=== PATIENT | female | born 1990 | race American Indian/Alaskan Native ===

== ENCOUNTER 2017-10-31 23:20 | Outpatient (CLI) | payer OTHER ==
[2017-10-31 23:42] VITALS: BP 108/57
== END 2017-11-01 00:20 | disposition home or self-care (01) ==
LOC: TRG 23:20
PROVIDERS: ATTEND Obstetrics & Gynecology
DX: O47.1 False labor at or after 37 completed weeks of gestation (principal); Z3A.38 38 weeks gestation of pregnancy
CPT/HCPCS: 59025

== ENCOUNTER 2017-11-04 00:50 | Outpatient (CLI) | payer OTHER ==
[2017-11-04 01:02] VITALS: BP 103/60
== END 2017-11-04 01:56 | disposition home or self-care (01) ==
LOC: TRG 00:50
PROVIDERS: ATTEND Obstetrics & Gynecology
DX: O26.893 Other specified pregnancy related conditions, third trimester (principal); R10.9 Unspecified abdominal pain; Z3A.39 39 weeks gestation of pregnancy

== ENCOUNTER 2019-01-29 10:50 | Emergency (ER) | payer OTHER ==
[2019-01-29 11:14] VITALS: BP 109/70
[2019-01-29 13:00] LABS: Hematocrit 37.1 % (30.3-42.9); Hemoglobin 12.4 gm/dl (10.1-14.3); Mean Corpuscular HGB Conc 34 % (30-34); Mean Corpuscular Volume 91 fl (79-97); Platelet Count 176 K/mm3 (140-440); Red Blood Count 4.07 M/mm3 (3.65-5.03); Red Cell Distribution Width 13.9 % (13.2-15.2)
[2019-01-29 13:42] LABS: BUN/Creatinine Ratio 15; Blood Urea Nitrogen 9 mg/dL (7-17); Calcium 9.5 mg/dL (8.4-10.2); Hemolysis Index 10
--- NOTE | 2019-01-29 13:42 | Emergency Department Report ---
ED Abdominal Pain HPI - General Chief Complaint: Abdominal Pain Stated Complaint: 7WKS/ABD PAIN Time Seen by Provider: 01/29/19 13:11 Source: patient Mode of arrival: Ambulatory Limitations: No Limitations - History of Present Illness Initial Comments: 28YO COMES TO ER WITH ABD PAIN. SHE IS 13 W . DENIES VAG BLEED. . SHE IS AMBULATORY AND NON TOXIC NO FEVER HAS OBGYN APPNT IN JANUARY - Related Data Allergies Allergy/AdvReac Type Severity Reaction Status Date / Time No Known Allergies Allergy Verified 10/31/17 23:58 ED Review of Systems ROS: Stated complaint: 7WKS/ABD PAIN Other details as noted in HPI Comment: All other systems reviewed and negative ED Past Medical Hx - Past Medical History Hx Hypertension: No Hx Diabetes: No Hx Deep Vein Thrombosis: No Hx Renal Disease: No Hx Sickle Cell Disease: No Hx Seizures: No Hx Asthma: No Hx HIV: No - Surgical History Past Surgical History?: No - Family History Family history: no significant - Social History Smoking Status: Never Smoker Substance Use Type: None ED Physical Exam - General Limitations: No Limitations General appearance: alert, in no apparent distress - Head Head exam: Present: atraumatic, normocephalic - Eye Eye exam: Present: normal appearance, PERRL - ENT ENT exam: Present: mucous membranes moist - Neck Neck exam: Present: normal inspection ED Course Vital Signs 01/29/19 11:13 Temperature 98.6 F Pulse Rate 100 H Respiratory 18 Rate Blood Pressure 109/70 [Left] O2 Sat by Pulse 98 Oximetry ED Medical Decision Making - Lab Data Result diagrams: 01/29/19 12:48 01/29/19 12:48 - Medical Decision Making LEFT BEFORE LABS COMPLETED BETA HCG NOT RETURNED Vital Signs 01/29/19 11:13 Temperature 98.6 F Pulse Rate 100 H Respiratory 18 Rate Blood Pressure 109/70 [Left] O2 Sat by Pulse 98 Oximetry Labs 01/29/19 01/29/19 01/29/19 12:48 12:48 12:48 WBC 9.0 RBC 4.07 Hgb 12.4 Hct 37.1 MCV 91 MCH 31 MCHC 34 RDW 13.9 Plt Count 176 Sodium 136 L Potassium 4.0 Chloride 101.7 Carbon Dioxide 23 Anion Gap 15 BUN 9 Creatinine 0.6 L Estimated GFR > 60 BUN/Creatinine Ratio 15 Glucose 99 Calcium 9.5 Urine Bilirubin Urine RBC (Auto) U Epithel Cells (Auto) Blood Type O POSITIVE 01/29/19 13:25 WBC RBC Hgb Hct MCV MCH MCHC RDW Plt Count Sodium Potassium Chloride Carbon Dioxide Anion Gap BUN Creatinine Estimated GFR BUN/Creatinine Ratio Glucose Calcium Urine Bilirubin Neg Urine RBC (Auto) 1.0 U Epithel Cells (Auto) 2.0 Blood Type Critical care attestation.: If time is entered above; I have spent that time in minutes in the direct care of this critically ill patient, excluding procedure time. ED Disposition Clinical Impression: Disposition: Z-07 ELOPED Is pt being admited?: No Does the pt Need Aspirin: No Condition: Stable Time of Disposition: 13:49
[2019-01-29 13:43] LABS: Bacteria,Urine 1+ /HPF (Negative); Bilirubin,Urine NEG (Negative); Blood,Urine NEG (Negative); Color,Urine Yellow (Yellow); Mucus,Urine 3+ /HPF; Protein,Urine <15 mg/dL mg/dL (Negative)
== END 2019-01-29 13:52 | disposition left against medical advice (07) ==
LOC: ED 10:50
DX: O26.891 Other specified pregnancy related conditions, first trimester (principal); R10.9 Unspecified abdominal pain; Z3A.13 13 weeks gestation of pregnancy
CPT/HCPCS: 36415; 80048; 81001; 84702; 85027; 86900; 86901; 99283

== ENCOUNTER 2019-03-07 10:31 | Emergency (ER) | payer MEDICAID, OTHER ==
[2019-03-07] MEDS ORDERED: TYLENOL ONE (11:13)
[2019-03-07] MEDS ORDERED: NACL 0.9% 1000 ML 1,000 ML ONE (11:13)
[2019-03-07] MEDS ORDERED: NACL 0.9% 1000 ML 1,000 ML IV ONE (11:16)
[2019-03-07] MEDS ORDERED: TYLENOL PO ONE (11:16)
--- NOTE | 2019-03-07 11:22 | Emergency Department Report ---
ED Female HPI - General Chief complaint: Vaginal Bleeding Stated complaint: VAGINAL BLEEDING Time Seen by Provider: 03/07/19 11:15 Source: patient Mode of arrival: Stretcher Limitations: No Limitations - History of Present Illness Initial comments: Patient is 28 years old female with no significant past medical history. Patient is 2 para 1. Patient is 15 weeks presented to the ER complaining of sudden onset of vaginal bleeding started this morning while she was washing dishes at home. Patient stated that she is having lower abdominal cramping. Patient follow by [facility]. Patient denied any chest pain, shortness of breath, nausea or vomiting. MD Complaint: vaginal bleeding, pelvic pain -: Sudden, This morning Radiation: suprapubic Consistency: constant Are you Now?: Yes - Related Data : 2 Para: 1 A: 0 Previous Rx's Medication Instructions Recorded Last Taken Type cephALEXin [Keflex] 500 mg PO BID 7 Days #14 cap 02/15/19 Unknown Rx Allergies Allergy/AdvReac Type Severity Reaction Status Date / Time No Known Allergies Allergy Verified 10/31/17 23:58 ED Review of Systems ROS: Stated complaint: VAGINAL BLEEDING Other details as noted in HPI Comment: All other systems reviewed and negative Constitutional: denies: chills, fever Respiratory: denies: cough, orthopnea, shortness of breath, SOB with exertion, SOB at rest, wheezing Cardiovascular: denies: chest pain, palpitations, dyspnea on exertion Gastrointestinal: abdominal pain. denies: nausea, vomiting, diarrhea, constipation, hematemesis, melena, hematochezia Musculoskeletal: denies: back pain Neurological: denies: headache, weakness, numbness, paresthesias, confusion ED Past Medical Hx - Past Medical History Previous Medical History?: No Hx Hypertension: No Hx Diabetes: No Hx Deep Vein Thrombosis: No Hx Renal Disease: No Hx Sickle Cell Disease: No Hx Seizures: No Hx Asthma: No Hx HIV: No - Surgical History Past Surgical History?: No - Social History Smoking Status: Never Smoker Substance Use Type: None - Medications Home Medications: Home Medications Medication Instructions Recorded Confirmed Last Taken Type cephALEXin [Keflex] 500 mg PO BID 7 Days #14 cap 02/15/19 Unknown Rx ED Physical Exam - General Limitations: No Limitations General appearance: alert, in no apparent distress - Head Head exam: Present: atraumatic, normocephalic, normal inspection - Eye Eye exam: Present: normal appearance - ENT ENT exam: Present: normal exam, normal orophraynx, mucous membranes moist - Neck Neck exam: Present: normal inspection, full ROM. Absent: tenderness, meningismus, lymphadenopathy, thyromegaly - Respiratory Respiratory exam: Present: normal lung sounds bilaterally - Cardiovascular Cardiovascular Exam: Present: regular rate, normal rhythm, normal heart sounds - GI/Abdominal GI/Abdominal exam: Present: soft, normal bowel sounds. Absent: distended, tenderness, guarding, rebound, rigid, organomegaly, mass, bruit, pulsatile mass, hernia - Extremities Exam Extremities exam: Present: normal inspection, full ROM, normal capillary refill - Back Exam Back exam: Present: normal inspection, full ROM. Absent: CVA tenderness (R), CVA tenderness (L), muscle spasm, paraspinal tenderness, vertebral tenderness, rash noted - Neurological Exam Neurological exam: Present: alert, oriented X3, CN II-XII intact, normal gait - Skin Skin exam: Present: warm, intact, normal color ED Course Vital Signs 03/07/19 03/07/19 03/07/19 10:53 11:15 12:31 Temperature 98.8 F Pulse Rate 97 H Respiratory 20 Rate Blood Pressure 103/50 Blood Pressure 112/61 115/52 [Left] O2 Sat by Pulse 98 Oximetry ED Medical Decision Making - Lab Data Result diagrams: 03/07/19 10:52 03/07/19 10:52 - Radiology Data Radiology results: report reviewed - Medical Decision Making Patient is 28 years old female with no significant past medical history. Patient is 2 para 1. Patient is 15 weeks presented to the ER complaining of sudden onset of vaginal bleeding started this morning while she was washing dishes at home. Patient stated that she is having lower abdominal cramping. Patient follow by [facility]. Patient denied any chest pain, shortness of breath, nausea or vomiting. Patient remained stable with stable vital signs. Labs reviewed and is unremarkable. ultrasound showed life intrauterine with a gestation age 14 weeks. I advised the patient to follow-up with our OB doctor in the next 2-3 days and to return to the ER if symptoms are not improved. Critical care attestation.: If time is entered above; I have spent that time in minutes in the direct care of this critically ill patient, excluding procedure time. ED Disposition Clinical Impression: Abdominal pain affecting , Vaginal bleeding during Disposition: - TO HOME OR SELFCARE Is pt being admited?: No Condition: Stable Instructions: Abdominal Pain in (ED) Referrals: [facility] [Provider Group] - 3-5 Days
[2019-03-07 11:23] LABS: Basophils % (Auto) 0.3 % (0.0-1.8); Eosinophils # (Auto) 0.1 K/mm3 (0.0-0.4); Eosinophils % (Auto) 0.7 % (0.0-4.3); Hematocrit 34.3 % (30.3-42.9); Hemoglobin 11.6 gm/dl (10.1-14.3); Lymphocytes # (Auto) 2.4 K/mm3 (1.2-5.4); Mean Corpuscular HGB Conc 34 % (30-34); Mean Corpuscular Volume 91 fl (79-97); Monocytes # (Auto) 0.7 K/mm3 (0.0-0.8); Monocytes % (Auto) 6.6 % (0.0-7.3); Platelet Count 156 K/mm3 (140-440); Red Blood Count 3.76 M/mm3 (3.65-5.03); Red Cell Distribution Width 13.9 % (13.2-15.2)
[2019-03-07 11:48] LABS: Bacteria,Urine 1+ /HPF (Negative); Bilirubin,Urine NEG (Negative); Blood,Urine LG (Negative); Color,Urine Red (Yellow); Urobilinogen,Urine < 2.0 mg/dL (<2.0)
[2019-03-07 11:59] LABS: BUN/Creatinine Ratio 8; Blood Urea Nitrogen 5 mg/dL (7-17); Calcium 9.3 mg/dL (8.4-10.2); Hemolysis Index 4
[2019-03-07 12:31] VITALS: BP 115/52
--- NOTE | 2019-03-07 12:34 | Ultrasound Report ---
ULTRASOUND OB LESS THAN 14 WEEKS FETUS History: Abdominal pain, vaginal bleeding Technique: Transabdominal ultrasound Findings: Compared to 02/15/19 exam. An intrauterine with heart rate measuring 160 beats per minute is identified. The placenta is forming posteriorly. Amniotic fluid volume appears normal. Cephalic position. The cervix is obscured. biometry measurements correlate with a 14 week 3 day . The ovaries are unremarkable. No pelvic fluid collection. Impression: Viable, single intrauterine as described. No acute abnormality is detected on ultrasound.
== END 2019-03-07 13:11 | disposition home or self-care (01) ==
LOC: ED 10:31
DX: O46.92 Antepartum hemorrhage, unspecified, second trimester (principal); Z3A.14 14 weeks gestation of pregnancy
CPT/HCPCS: 36415; 76805; 80048; 81001; 84702; 84703; 85025; 86900; 86901; 99284; J7030; 76801; 96360; 96361

== ENCOUNTER 2019-05-14 22:31 | Outpatient (CLI) | payer OTHER ==
[2019-05-14] MEDS ORDERED: LACTATED RINGERS 1,000 ML IV ONE (22:47)
[2019-05-14 23:15] VITALS: BP 107/58
[2019-05-15] MEDS: BRETHINE SUB-Q SCH ×2 (00:35→00:59)
[2019-05-15 00:49] LABS: Bilirubin,Urine NEG (Negative); Blood,Urine NEG (Negative); Color,Urine Yellow (Yellow); Mucus,Urine 3+ /HPF; Protein,Urine <15 mg/dL mg/dL (Negative); Urobilinogen,Urine < 2.0 mg/dL (<2.0)
[2019-05-15] MEDS ORDERED: LACTATED RINGERS 1,000 ML IV SCH (01:00)
[2019-05-15] MEDS ORDERED: MACROBID PO ONE (01:53)
[2019-05-15] MEDS ORDERED: PYRIDIUM PO ONE (01:54)
== END 2019-05-15 01:52 | disposition home or self-care (01) ==
LOC: TRG 22:31
PROVIDERS: ATTEND Obstetrics & Gynecology
DX: O21.2 Late vomiting of pregnancy (principal); O09.212 Supervision of pregnancy with history of pre-term labor, second trimester; O26.892 Other specified pregnancy related conditions, second trimester; R10.9 Unspecified abdominal pain; O47.02 False labor before 37 completed weeks of gestation, second trimester; Z3A.23 23 weeks gestation of pregnancy
CPT/HCPCS: 81001; 87086; 96360; 96361; 96372; J3105; J7120

== ENCOUNTER 2019-07-18 14:56 | Outpatient (CLI) | payer OTHER ==
[2019-07-18] MEDS ORDERED: LACTATED RINGERS 1,000 ML IV SCH (16:00)
[2019-07-18 16:05] VITALS: BP 115/69
[2019-07-18 16:27] LABS: Bilirubin,Urine NEG (Negative); Blood,Urine NEG (Negative); Color,Urine Yellow (Yellow); Mucus,Urine 3+ /HPF; Urobilinogen,Urine < 2.0 mg/dL (<2.0)
--- NOTE | 2019-07-18 17:02 | Event Note ---
Date: 07/18/19 pt sitting up on side of bed, reports feeling better after eating a cup of ice. SVE per Neo Moore RN closed/thick/oop. pt requesting to go home. advised pt to keep next scheduled appointment in office. all questions addressed.
== END 2019-07-18 17:32 | disposition home or self-care (01) ==
LOC: LD 14:56 → TRG 14:56
PROVIDERS: ATTEND Obstetrics & Gynecology
DX: O47.03 False labor before 37 completed weeks of gestation, third trimester (principal); Z3A.33 33 weeks gestation of pregnancy
CPT/HCPCS: 81001; 87086

== ENCOUNTER 2019-08-05 02:21 | Outpatient (CLI) | payer OTHER ==
[2019-08-05 02:37] VITALS: BP 116/65
[2019-08-05] MEDS ORDERED: ONDANSETRON 4 MG/2 ML INJ ONE (03:41)
== END 2019-08-05 04:28 | disposition home or self-care (01) ==
LOC: TRG 02:21
PROVIDERS: ATTEND Obstetrics & Gynecology
DX: O62.8 Other abnormalities of forces of labor (principal); Z3A.35 35 weeks gestation of pregnancy
CPT/HCPCS: 59025; J2405

== ENCOUNTER 2019-08-14 14:52 | Inpatient (IN) | payer OTHER ==
[2019-08-14] MEDS ORDERED: ONDANSETRON 4 MG/2 ML INJ IV PRN (14:53)
[2019-08-14] MEDS ORDERED: TERBUTALINE 1 MG/1 ML INJ SUB-Q PRN (14:53)
[2019-08-14] MEDS ORDERED: MINERAL OIL 30 ML ORAL LIQD PO PRN (14:53)
[2019-08-14] MEDS ORDERED: LIDOCAINE (2%) 20 MG/1 ML VIAL 20 ML MDV INFILTRATI ONE ×2 (14:53→18:44)
[2019-08-14] MEDS ORDERED: ePHEDrine SULFATE 50 MG/1 ML INJ IV PRN (14:53)
[2019-08-14] MEDS ORDERED: LACTATED RINGERS 1,000 ML IV SCH (15:00)
[2019-08-14] MEDS ORDERED: OXYTOCIN DRIP 30 UNITS/500 ML BAG IV SCH (15:00)
[2019-08-14] MEDS ORDERED: OXYTOCIN 20 UNIT/1000ML DRIP 20 UNITS/1,000 ML BAG IV SCH (15:00)
--- NOTE | 2019-08-14 15:05 | History and Physical Report ---
History of Present Illness Date of examination: 08/14/19 (sent from office 7-8cm dilated) Date of admission: 08/14/19 14:52 Chief complaint: decreased FM and worsening ctx History of present illness: EDC Confirmation: 09/02/2019 Gestational Age: 6 4/7 weeks Past History : 2 Term Births: 1 Premature Births: 0 Living Children: 1 Para: 1 Mult. Births: 0 Prev : 0 Prev. attempt? 0 Aborta: 0 Elect. Ab: 0 Spont. Ab: 0 Ectopics: 0 # 1 Delivery date: 11/04/2017 Weeks Gestation: 39 labor: no Delivery type: Anesthesia type: none Delivery location: [place] Infant Sex: Female weight: 6#3 Name: Suad Comments: sciatic nerve pain Risk Factors: Smoked Tobacco Use: Never smoker Smokeless Tobacco Use: Never Passive smoke exposure: no Drug use: no HIV high-risk behavior: no Alcohol use: yes Drinks per day: <1 Exercise: no Seatbelt use: preg-[employer] % Dietary Counseling: pn yes Past Medical History: Negative Past Medical History Past Surgical History: Negative Past Surgical History Past Medical History Surgery (Non-ob gyn physician assistant): Negative Past Surgical History Abnormal PAP: negative AZUCENA Exposure: negative Infertility: negative Uterine Anomaly: negative Uterine Surgery (not C/S): negative Other Gynecologic Problems: negative Family Hx: none Social Hx: single. engaged. EUGENIE Gallego Lives with Fiance and child SAHM Denies alcohol, drugs, tobacco Infection History Hx of STD: none HIV Risk Eval: no Hepatitis B Risk Eval: low risk Personal hx. of genital herpes: no Partner hx. of genital herpes: no Rash, Viral, or Febrile illness since last LMP? no Varicella/Chicken Pox Status: Immunized TB Risk: no Genetic History Congenital Heart Defect: Mom: no Dad: no Smiley Disease: Mom: no Dad: no Thalassemia Mom: no Dad: no Neural Tube Defect Mom: no Dad: no Down's Syndrome Mom: no Dad: no Lucas-Sachs Mom: no Dad: no Sickle Cell Disease/Trait Mom: no Dad: yes Hemophilia Mom: no Dad: no Muscular Dystrophy Mom: no Dad: no Cystic Fibrosis Mom: no Dad: no [place] Chorea Mom: no Dad: no Mental Retardation Mom: no Dad: no Fragile X Mom: no Dad: no Other Genetic/Chromosomal Disorder Mom: no Dad: no Child w/other defect Mom: no Dad: no Comments/Counseling: FOC sickle cell trait +? Sister +SCdisease Enviromental Exposures Enviromental Exposures Reviewed Xray Exposure: no Medication, drug, or alcohol use since LMP: no Chemical/Other Exposure: no Exposure to Cat Liter: no Hx of Parvovirus (Fifth Disease): no Occupational Exposure to Children: none Active Medications: None Current Allergies (reviewed today): * MORPHIN (Critical) Past History - Obstetrical History Expected Date of Delivery: 09/02/19 Actual Gestation: 37 Week(s) 2 Day(s) : 2 Para: 1 Hx # Term Pregnancies: 1 Number of Pregnancies: 0 Spontaneous Abortions: 0 Induced : 0 Number of Living Children: 1 Medications and Allergies Allergies Allergy/AdvReac Type Severity Reaction Status Date / Time morphine Allergy Severe Anaphylaxis Verified 07/18/19 15:51 Home Medications Medication Instructions Recorded Confirmed Last Taken Type No Known Home Medications [No 05/14/19 05/14/19 Unknown History Reported Home Medications] - Physical Exam Breasts: Positive: deferred Cardiovascular: Regular rate, Normal S1, Normal S2 Lungs: Positive: Normal air movement Abdomen: Positive: normal appearance, soft, normal bowel sounds. Negative: distention, tenderness Genitourinary (Female): Positive: normal external genitalia Vulva: both: normal Vagina: Positive: normal moisture. Negative: discharge Cervix: Negative: lesion, discharge Uterus: Positive: normal size, normal contour Adnexa: both: normal Anus/Rectum: Positive: normal perianal skin, heme negative. Negative: rectal mass, hemorrhoids Extremities: Positive: normal Deep Tendon Reflex Grade: Normal +2 - Obstetrical FHR: category 1 Uterine Contraction Monitor Mode: External Cervical Dilatation: 7 Cervical Effacement Percentage: 70 station: -1 Uterine Contraction Pattern: Irregular Uterine Tone Measurement Phase: Resting Uterine Contraction Intensity: Moderate Results All other labs normal. GBS Negative HBsAg Screen Negative Negative *1 RPR Non Reactive Non Reactive *2 Rubella Antibodies, IgG 9.82 index Immune >0.99 *3 Non-immune <0.90 Equivocal 0.90 - 0.99 Immune >0.99 ABO Grouping O *4 Rh Factor Positive *5 Please note: Prior records for this patient's ABO / Rh type are not available for additional verification. Antibody Screen Negative Negative *6 WBC 10.4 x10E3/uL 3.4-10.8 *7 RBC [L] 3.52 x10E6/uL 3.77-5.28 *8 Hemoglobin [L] 10.4 g/dL 11.1-15.9 *9 Hematocrit [L] 31.6 % 34.0-46.6 *10 MCV 90 fL 79-97 *11 MCH 29.5 pg 26.6-33.0 *12 MCHC 32.9 g/dL 31.5-35.7 *13 RDW 14.4 % 12.3-15.4 *14 Platelets 173 x10E3/uL 150-450 *15 Neutrophils 66 % Not Estab. *16 Lymphs 24 % Not Estab. *17 Monocytes 8 % Not Estab. *18 Eos 1 % Not Estab. *19 Basos 0 % Not Estab. *20 ! Immature Cells <No Reported Value> *21 Neutrophils (Absolute) 6.9 x10E3/uL 1.4-7.0 *22 Lymphs (Absolute) 2.5 x10E3/uL 0.7-3.1 *23 Monocytes(Absolute) 0.8 x10E3/uL 0.1-0.9 *24 Eos (Absolute) 0.1 x10E3/uL 0.0-0.4 *25 Baso (Absolute) 0.0 x10E3/uL 0.0-0.2 *26 ! Immature Granulocytes 1 % Not Estab. *27 ! Immature Grans (Abs) 0.1 x10E3/uL 0.0-0.1 *28 ! NRBC <No Reported Value> *29 Hematology Comments: <No Reported Value> *30 Tests: (2) AFP Tetra ([id number]) ! Results Report *31 ! Test Results: *Screen Negative* *32 Tests: (3) Panel 142851 ([id number]) HIV Screen 4th Generation wRfx Non Reactive Non Reactive *55 Tests: (4) HCV Ab w/Rflx to Verification ([id number]) ! HCV Ab <0.1 s/co ratio 0.0-0.9 *56 Tests: (5) Comment: ([id number]) ! Comment: SPRCS *57 Non reactive HCV antibody screen is consistent with no HCV infection, unless recent infection is suspected or other evidence exists to indicate HCV infection. Tests: (6) Urine Culture, Routine ([id number]) Urine Culture, Routine Final report *58 Tests: (7) Result ([id number]) ! Result 1 No growth *59 Assessment and Plan 29yo @ 37w2d in active labor with c/o decreased FM. FM palpated by CNM in office @ PN visit today. SVE 7,70,-1 Vertex. Pt sent to L&D Chg Nurse Alida notified of direct admit. GBS negative All orders in EMR. aware of pt. - Patient Problems (1) Temporary low platelet count Onset Date: ~08/08/19 Current Visit: Yes Status: Acute Plan to address problem: Platelet count 125 At the onset of 173
[2019-08-14 16:04] LABS: Hematocrit 29.1 % (30.3-42.9); Hemoglobin 9.3 gm/dl (10.1-14.3); Mean Corpuscular HGB Conc 32 % (30-34); Mean Corpuscular Volume 79 fl (79-97); Platelet Count 101 K/mm3 (140-440); Red Blood Count 3.69 M/mm3 (3.65-5.03); Red Cell Distribution Width 17.6 % (13.2-15.2)
[2019-08-14] MEDS: fentaNYL 100 MCG/2 ML INJ IV PRN ×2 (16:36→18:46)
--- NOTE | 2019-08-14 18:53 | Progress Note ---
Assessment and Plan - Patient Problems (1) 37 weeks gestation of Current Visit: Yes Status: Acute Plan to address problem: -anticipate (2) Active labor Current Visit: Yes Status: Acute Subjective - Subjective Date of service: 08/14/19 Principal diagnosis: 37 weeks active labor Interval history: called by RN to examine pt. Pt c/o pain and desires more pain meds cx at this time 8.5-9/100/0. Advised of affects of pain meds on if delivery is soon after it is given. Pt expressed understanding and request pain meds. She still declines epidural a this time. Patient reports: movement normal, contractions, no new complaints Objective - Vital Signs Vital Signs: Vital Signs - 12hr 08/14/19 08/14/19 08/14/19 15:20 15:24 15:25 Temperature 98.2 F Pulse Rate 98 H 97 H Respiratory 18 Rate Blood Pressure 113/59 Blood Pressure 113/59 [Right] O2 Sat by Pulse 98 99 Oximetry 08/14/19 08/14/19 08/14/19 15:30 15:35 15:40 Temperature Pulse Rate 111 H 97 H 113 H Respiratory Rate Blood Pressure Blood Pressure [Right] O2 Sat by Pulse 99 99 98 Oximetry 08/14/19 08/14/19 08/14/19 15:45 15:50 15:55 Temperature Pulse Rate 102 H 103 H 104 H Respiratory Rate Blood Pressure Blood Pressure [Right] O2 Sat by Pulse 99 98 99 Oximetry 08/14/19 08/14/19 08/14/19 16:00 16:05 16:10 Temperature Pulse Rate 101 H 103 H 106 H Respiratory Rate Blood Pressure Blood Pressure [Right] O2 Sat by Pulse 98 99 98 Oximetry 08/14/19 08/14/19 08/14/19 16:15 16:20 16:25 Temperature Pulse Rate 112 H 93 H 94 H Respiratory Rate Blood Pressure Blood Pressure [Right] O2 Sat by Pulse 100 99 100 Oximetry 08/14/19 08/14/19 08/14/19 16:30 16:35 16:40 Temperature Pulse Rate 98 H 98 H 100 H Respiratory Rate Blood Pressure Blood Pressure [Right] O2 Sat by Pulse 100 100 100 Oximetry 08/14/19 08/14/19 08/14/19 16:45 16:50 16:55 Temperature Pulse Rate 93 H 91 H 88 Respiratory Rate Blood Pressure Blood Pressure [Right] O2 Sat by Pulse 99 99 99 Oximetry 08/14/19 08/14/19 08/14/19 17:00 17:05 17:10 Temperature Pulse Rate 84 92 H 82 Respiratory Rate Blood Pressure Blood Pressure [Right] O2 Sat by Pulse 99 99 98 Oximetry 08/14/19 08/14/19 08/14/19 17:15 17:20 17:25 Temperature Pulse Rate 91 H 90 95 H Respiratory Rate Blood Pressure Blood Pressure [Right] O2 Sat by Pulse 100 100 99 Oximetry 08/14/19 08/14/19 08/14/19 17:36 17:37 17:42 Temperature Pulse Rate 86 93 H 93 H Respiratory Rate Blood Pressure 118/74 Blood Pressure [Right] O2 Sat by Pulse 100 99 Oximetry 08/14/19 08/14/19 08/14/19 17:47 17:52 17:57 Temperature Pulse Rate 94 H 94 H 90 Respiratory Rate Blood Pressure Blood Pressure [Right] O2 Sat by Pulse 100 100 100 Oximetry 08/14/19 08/14/19 08/14/19 18:02 18:07 18:08 Temperature Pulse Rate 98 H 96 H 95 H Respiratory Rate Blood Pressure 120/65 Blood Pressure [Right] O2 Sat by Pulse 100 100 Oximetry 08/14/19 08/14/19 08/14/19 18:12 18:17 18:22 Temperature Pulse Rate 98 H 107 H 100 H Respiratory Rate Blood Pressure Blood Pressure [Right] O2 Sat by Pulse 100 99 100 Oximetry 08/14/19 08/14/19 08/14/19 18:27 18:32 18:37 Temperature Pulse Rate 105 H 100 H 109 H Respiratory Rate Blood Pressure Blood Pressure [Right] O2 Sat by Pulse 100 99 100 Oximetry 08/14/19 08/14/19 18:39 18:41 Temperature Pulse Rate 104 H 90 Respiratory Rate Blood Pressure 111/76 Blood Pressure [Right] O2 Sat by Pulse 79 L Oximetry - Exam Cervical Dilatation: 9 Cervical Effacement Percentage: 100 station: 0 Uterine Contraction Pattern: Regular Uterine Tone Measurement Phase: Resting Uterine Contraction Intensity: Moderate Extremities: normal - Labs Labs: Abnormal Labs 08/14/19 15:13 Hgb 9.3 L Hct 29.1 L MCH 25 L RDW 17.6 H Plt Count 101 L Laboratory Results - last 24 hr 11/08/14/19 08/14/19 15:13 15:13 15:31 WBC 7.6 RBC 3.69 Hgb 9.3 L Hct 29.1 L MCV 79 MCH 25 L MCHC 32 RDW 17.6 H Plt Count 101 L Syphilis IgG Antibody Non-reactive Blood Type O POSITIVE Antibody Screen Negative
--- NOTE | 2019-08-14 21:01 | Procedure Note ---
OB Delivery Note - Delivery Date of Delivery: 08/14/19 Surgeon: PAZ MAIER Estimated blood loss: 300cc - Vaginal Delivery presentation: vertex Delivery position: OA Intrapartum events: none Delivery induction: none Delivery augmentation: pitocin Delivery monitor: external FHT, external uterine Route of delivery: Delivery placenta: spontaneous Delivery cord: 3 umbilical vessels Episiotomy: none Delivery laceration: none Anesthesia: intravenous Delivery comments: Delivery as above. Ant shoulder and rest of infant delivered without difficulty. There was no nuchal cord present. Infant was placed on maternal abdomen. cord clamped x 2 and cut x1 by father of the baby. Cord blood collected. Placenta delivered spontaneously intact. No lacerations noted. Mother and infant stable in LDR. - Infant A at 1 minute: 8 at 5 minutes: 9 Gender: Male (7lb 8.4 oz)
[2019-08-14] MEDS ORDERED: LANOLIN/ZINC/DIMETHICONE (LANSINOH) 7 GM TP PRN (21:03)
[2019-08-14] MEDS ORDERED: ACETAMINOPHEN 325 MG TAB PO PRN (21:03)
[2019-08-14] MEDS ORDERED: diphenhydrAMINE 25 MG CAP PO PRN (21:03)
[2019-08-14] MEDS ORDERED: WITCH HAZEL/ GLYCERIN PAD TP PRN (21:03)
[2019-08-14] MEDS ORDERED: MAGNESIUM HYDROXIDE (MOM) ORAL LIQD UDC PO PRN (21:03)
[2019-08-14] MEDS ORDERED: PROMETHAZINE 25 MG TAB PO PRN (21:03)
[2019-08-14] MEDS ORDERED: PROMETHAZINE 25 MG RECT SUPP PR PRN (21:03)
[2019-08-14] MEDS: IBUPROFEN 600 MG TAB PO SCH (21:15)
[2019-08-15] MEDS: IBUPROFEN 600 MG TAB PO SCH ×4 (05:58→22:00)
--- NOTE | 2019-08-15 06:44 | Discharge Summary ---
Providers - Providers Date of Admission: 08/14/19 14:52 Date of discharge: 08/15/19 (pt desires d/c today if baby can go) Attending physician: PAZ MAIER Primary care physician: PAZ MAIER Hospitalization Reason for admission: active labor, IUP at term Delivery: Episiotomy: none Laceration: none Incision: normal Other procedures: none complications: none Discharge diagnosis: IUP at term delivered baby: male (will call [facility] to schedule for circ) Hospital course: uncomplicated vaginal delivery Pt resting No c/o voiced VSS FF below umb Lochia mod Perineum intact H&H pending. Doing well s/p vag delivery. P: d/c today @ 24hr post delivery if baby can be d/c also. Instructions given RTO 1 week circ and 4weeks for PP care. Pt desires DEPO for BC. Condition at discharge: Good Disposition: DC-01 TO HOME OR SELFCARE - Discharge Diagnoses (1) Spontaneous vaginal delivery Status: Acute Comment: RTO 4 weeks PP care Plan - Discharge Medications Prescriptions: Lidocain2.5%/Prilocai2.5% [Emla] 5 gm TP PRN #1 tube Ibuprofen [Motrin 800 MG tab] 800 mg PO TID PRN #30 tablet PRN Reason: Pain - Provider Discharge Summary Activity: routine, no sex for 6 weeks, no heavy lifting 4 weeks, no strenuous exercise Diet: routine Instructions: routine Additional instructions: [] Smoking cessation referral if applicable(refer to patient education folder for contact #) [] Refer to [facility]'s [facility] Booklet Call your doctor immediately for: * Fever > 100.5 * Heavy vaginal bleeding ( >1 pad per hour) * Severe persistent headache * Shortness of breath * Reddened, hot, painful area to leg or breast * Drainage or odor from incision. * Keep incision clean and dry at all times and follow doctor's instructions regarding bathing/showering - Follow up plan Follow up: PAZ MAIER MD [Primary Care Provider] - 09/16/19 (Congratulations! Please call [phone] to schedule your visit in 4 weeks. Call to schedule your son's circumcision in one week. Bring the EMLA cream with you to his visit. Do NOT use at home. Take Motrin/ibuprofen for cramping/pain. Call with any concerns.)
[2019-08-15] MEDS ORDERED: medroxyPROGESTERone ACETATE 150 MG/ML SYRINGE IM NR (06:46)
[2019-08-15 08:37] LABS: Hematocrit 26.2 % (30.3-42.9); Hemoglobin 8.5 gm/dl (10.1-14.3)
[2019-08-16] MEDS ORDERED: TETANUS,DIPH,PERTUSS(ACELL) VACCINE 0.5 ML SYRINGE IM ONE (06:00)
[2019-08-16 15:47] VITALS: BP 108/66
== END 2019-08-16 16:20 | disposition home or self-care (01) | DRG 775 ==
LOC: LD 14:52 → OB 23:31
PROVIDERS: ADMIT Obstetrics & Gynecology; ATTEND Obstetrics & Gynecology
PROC: 10E0XZZ Delivery of Products of Conception, External Approach (ICD-10-PCS; principal; 2019-08-14)
DX: O80 Encounter for full-term uncomplicated delivery (principal); Z3A.37 37 weeks gestation of pregnancy; Z37.0 Single live birth; Z88.5 Allergy status to narcotic agent
CPT/HCPCS: 36415; 59025; 85014; 85018; 85027; 86592; 86850; 86900; 86901; G0378; J1050; J2590; J3010; J7120

== ENCOUNTER 2020-10-15 17:16 | Emergency (ER) | payer OTHER | END 2020-10-15 18:25 | disposition left against medical advice (07) | LOC: ED 17:16 | DX: M79.671 Pain in right foot (principal); Z53.21 Procedure and treatment not carried out due to patient leaving prior to being seen by health care provider ==

== ENCOUNTER 2021-06-24 09:57 | Emergency (ER) | payer OTHER ==
[2021-06-24 10:06] VITALS: BP 129/81
--- NOTE | 2021-06-24 10:44 | Emergency Department Report ---
ED ENT HPI - General Chief complaint: Dental/Oral Stated complaint: MOUTH SWOLLEN Time Seen by Provider: 06/24/21 10:18 Source: patient Mode of arrival: Ambulatory Limitations: No Limitations - History of Present Illness Initial comments: 31-year-old female presents to the ER today with complaints of right lower jaw swelling and dental pain. Patient states that she started having pain to one of her tooth in her left lower jaw few days ago and then yesterday she noticed that she started having swelling to her left lower jaw. She states that she did call her dentist, but the soonest appointment they could give her was August 07. She states that she requested something for pain and antibiotics, but they told her that she has not been in the office in the past 6 months and therefore could not call in any antibiotics or anything for pain. Patient reports pain radiating into her throat and into her neck. She denies any trismus, drooling, facial redness, fever or chills or any additional symptoms at this time. MD complaint: tooth pain, other (Jaw swelling) -: days(s) - Related Data Previous Rx's Medication Instructions Recorded Last Taken Type Lidocain2.5%/Prilocai2.5% [Emla] 5 gm TP PRN #1 tube 08/15/19 Unknown Rx Amoxicillin [Trimox CAP] 500 mg PO Q8H #30 capsule 06/24/21 Unknown Rx Ibuprofen [Motrin 800 MG tab] 800 mg PO TID PRN #30 tablet 06/24/21 Unknown Rx Allergies Allergy/AdvReac Type Severity Reaction Status Date / Time morphine Allergy Severe Anaphylaxis Verified 06/24/21 10:07 ED Dental HPI - General Chief complaint: Dental/Oral Stated complaint: MOUTH SWOLLEN Time Seen by Provider: 06/24/21 10:18 Source: patient Mode of arrival: Ambulatory Limitations: No Limitations - Related Data Previous Rx's Medication Instructions Recorded Last Taken Type Lidocain2.5%/Prilocai2.5% [Emla] 5 gm TP PRN #1 tube 08/15/19 Unknown Rx Amoxicillin [Trimox CAP] 500 mg PO Q8H #30 capsule 06/24/21 Unknown Rx Ibuprofen [Motrin 800 MG tab] 800 mg PO TID PRN #30 tablet 06/24/21 Unknown Rx Allergies Allergy/AdvReac Type Severity Reaction Status Date / Time morphine Allergy Severe Anaphylaxis Verified 06/24/21 10:07 ED Review of Systems ROS: Stated complaint: MOUTH SWOLLEN Other details as noted in HPI Comment: All other systems reviewed and negative Constitutional: denies: chills, fever Eyes: denies: eye pain, eye discharge, vision change ENT: dental pain. denies: ear pain, throat pain, hearing loss, epistaxis, congestion Respiratory: denies: cough, shortness of breath, SOB with exertion, SOB at rest, wheezing Cardiovascular: denies: chest pain, palpitations, edema, syncope, paroxysmal nocturnal dyspnea Gastrointestinal: denies: abdominal pain, nausea, diarrhea, constipation, hematemesis, melena, hematochezia Genitourinary: denies: urgency, dysuria, frequency, hematuria, discharge, abnormal menses, dyspareunia Musculoskeletal: denies: back pain, joint swelling, arthralgia Skin: denies: rash, lesions, change in color, change in hair/nails, pruritus Neurological: denies: headache, weakness, numbness, paresthesias, confusion, abnormal gait, vertigo Psychiatric: denies: anxiety, depression, auditory hallucinations, visual hallucinations, homicidal thoughts, suicidal thoughts Hematological/Lymphatic: as per HPI. denies: easy bruising, swollen glands ED Past Medical Hx - Past Medical History Hx Hypertension: No Hx Diabetes: No Hx Deep Vein Thrombosis: No Hx Renal Disease: No Hx Sickle Cell Disease: No Hx Seizures: No Hx Asthma: Yes (used albuterol 15 years ago) Hx HIV: No - Surgical History Past Surgical History?: No - Social History Smoking Status: Never Smoker - Medications Home Medications: Home Medications Medication Instructions Recorded Confirmed Last Taken Type Lidocain2.5%/Prilocai2.5% [Emla] 5 gm TP PRN #1 tube 08/15/19 Unknown Rx Amoxicillin [Trimox CAP] 500 mg PO Q8H #30 capsule 06/24/21 Unknown Rx Ibuprofen [Motrin 800 MG tab] 800 mg PO TID PRN #30 tablet 06/24/21 Unknown Rx ED Physical Exam - General Limitations: No Limitations General appearance: alert, in no apparent distress - Head Head exam: Present: atraumatic, normocephalic, normal inspection - Eye Eye exam: Present: normal appearance, PERRL, EOMI Pupils: Present: normal accommodation - ENT ENT exam: Present: normal exam, mucous membranes moist, TM's normal bilaterally - Expanded ENT Exam Expanded Mouth exam: Present: normal external inspection. Absent: drooling, trismus, muffled voice, tongue normal, tongue elevation, laceration 1 - Dental Tenderness, Other (Mild gingival swelling with severe tenderness to palpation. Mild left lower jaw swelling. No facial cellulitis.) Throat exam: Positive: normal inspection - Neck Neck exam: Present: normal inspection, full ROM, lymphadenopathy (Left anterior cervical, left submandibular with mild swelling and tenderness to palpation). Absent: meningismus - Respiratory Respiratory exam: Present: normal lung sounds bilaterally - Cardiovascular Cardiovascular Exam: Present: regular rate, normal rhythm, normal heart sounds - Neurological Exam Neurological exam: Present: alert, oriented X3, CN II-XII intact, normal gait - Psychiatric Psychiatric exam: Present: normal affect, normal mood - Skin Skin exam: Present: intact ED Course Vital Signs 06/24/21 09:59 Temperature 98.9 F Pulse Rate 83 Respiratory 18 Rate Blood Pressure 129/81 O2 Sat by Pulse 99 Oximetry ED Medical Decision Making - Medical Decision Making 31-year-old female presents to the ER today with complaints of right lower jaw swelling and dental pain. Patient states that she started having pain to one of her tooth in her left lower jaw few days ago and then yesterday she noticed that she started having swelling to her left lower jaw. She states that she did call her dentist, but the soonest appointment they could give her was August 07. She states that she requested something for pain and antibiotics, but they told her that she has not been in the office in the past 6 months and therefore could not call in any antibiotics or anything for pain. Patient reports pain radiating into her throat and into her neck. She denies any trismus, drooling, facial redness, fever or chills or any additional symptoms at this time. 1113: Patient is well-appearing, not toxic and not in any significant distress. She has no stridor on exam. She is tolerating her secretions well without any drooling. Airway is intact. She has no significant facial swelling or cellulitis. She is afebrile and remaining vital signs are normal. Patient will be treated for her dental abscess with abx and pain meds. She has appointment with dentist August 07 which I recommended she keeps. Patient was stable at time of discharge. Critical care attestation.: If time is entered above; I have spent that time in minutes in the direct care of this critically ill patient, excluding procedure time. ED Disposition Clinical Impression: Dental abscess Disposition: HOME / SELF CARE / HOMELESS Is pt being admited?: No Does the pt Need Aspirin: No Condition: Stable Instructions: Dental Abscess, [id number] Additional Instructions: Take the amoxicillin and the ibuprofen as prescribed. I recommend that you do warm salt water rinses or you can apply warm compresses to your face. Keep your appointment with your dentist for August 07. Return to the ER if your symptoms changes or worsens in any way. Prescriptions: Ibuprofen [Motrin 800 MG tab] 800 mg PO TID PRN #30 tablet PRN Reason: Pain Amoxicillin [Trimox CAP] 500 mg PO Q8H #30 capsule Referrals: PRIMARY CARE, [Referring] - 3-5 Days Forms: Work/School Release Form(ED) Time of Disposition: 10:53 Print Language: CANADIAN
== END 2021-06-24 11:11 | disposition home or self-care (01) ==
LOC: ED 09:57
DX: K04.7 Periapical abscess without sinus (principal); J45.909 Unspecified asthma, uncomplicated; Z88.5 Allergy status to narcotic agent
CPT/HCPCS: 99282

== ENCOUNTER 2021-09-30 14:50 | Emergency (ER) | payer OTHER | END 2021-09-30 14:55 | disposition left against medical advice (07) | LOC: ED 14:50 | DX: K08.89 Other specified disorders of teeth and supporting structures (principal); Z53.21 Procedure and treatment not carried out due to patient leaving prior to being seen by health care provider ==

== ENCOUNTER 2022-03-28 15:25 | Emergency (ER) | payer OTHER ==
[2022-03-28] MEDS ORDERED: SODIUM CHLORIDE 0.9% 1000 ML 1,000 ML IV ONE (15:40)
[2022-03-28] MEDS ORDERED: ONDANSETRON 4 MG/2 ML INJ IV ONE (15:40)
[2022-03-28 16:42] LABS: Alanine Aminotransferase 16 units/L (7-56); Albumin 4.2 g/dL (3.9-5); BUN/Creatinine Ratio 17; Blood Urea Nitrogen 12 mg/dL (7-17); Calcium 9.2 mg/dL (8.4-10.2); Hemolysis Index 261
[2022-03-28 16:48] LABS: Hematocrit 36.8 % (30.3-42.9); Hemoglobin 11.8 gm/dl (10.1-14.3); Mean Corpuscular HGB Conc 32 % (30-34); Mean Corpuscular Volume 90 fl (79-97); Platelet Count 223 K/mm3 (140-440); Red Cell Distribution Width 14.7 % (13.2-15.2)
[2022-03-28 17:55] LABS: Basophils % (Manual) 0 % (0.0-1.8); Total Cells Counted 100
[2022-03-28 17:58] LABS: Burr Cells Rare; Large Platelets Rare; Ovalocytes Rare; Platelet Estimate Consistent w Auto; Poikilocytosis Few; Spherocytes Rare
[2022-03-28 19:07] LABS: Amphetamine Screen,Urine Negative; Benzodiazepines Screen,Urine Negative; Cocaine Screen,Urine Negative; Methadone Screen,Urine Negative; Opiate Screen,Urine Negative
[2022-03-28 19:20] LABS: Bilirubin,Urine NEG (Negative); Blood,Urine NEG (Negative); Color,Urine Yellow (Yellow); Urobilinogen,Urine < 2.0 mg/dL (<2.0)
[2022-03-28 19:23] LABS: Cannabinoid Screen,Urine Positive
[2022-03-28 19:24] LABS: Bacteria,Urine 1+ /HPF (Negative); Mucus,Urine 3+ /HPF
[2022-03-28 19:26] LABS: HCG Qualitative,Urine Negative (Negative)
--- NOTE | 2022-03-28 19:35 | Emergency Department Report ---
ED General Adult HPI - General Chief complaint: Nausea/Vomiting/Diarrhea Stated complaint: DRUG INGESTION Time Seen by Provider: 03/28/22 15:40 Source: patient, EMS Mode of arrival: Stretcher Limitations: No Limitations - History of Present Illness Initial comments: NAUSEA, PATIENT TOOK CANDY FROM SOMEONE AT HER [employer]ARTMENT [employer] AND WANTS TO KNOW IF SHE WAS DRUGGED -: hour(s) Radiation: non-radiation Severity scale (0 -10): 0 Worsens with: none Associated Symptoms: denies: denies other symptoms, confusion, chest pain - Related Data Previous Rx's Medication Instructions Recorded Last Taken Type Lidocain2.5%/Prilocai2.5% [Emla] 5 gm TP PRN #1 tube 08/15/19 Unknown Rx Amoxicillin [Trimox CAP] 500 mg PO Q8H #30 capsule 06/24/21 Unknown Rx Ibuprofen [Motrin 800 MG tab] 800 mg PO TID PRN #30 tablet 06/24/21 Unknown Rx Allergies Allergy/AdvReac Type Severity Reaction Status Date / Time morphine Allergy Severe Anaphylaxis Verified 03/28/22 15:33 ED Review of Systems ROS: Stated complaint: DRUG INGESTION Other details as noted in HPI Constitutional: denies: chills, fever Eyes: denies: eye pain, eye discharge, vision change ENT: denies: ear pain, throat pain Respiratory: denies: cough, shortness of breath, wheezing Cardiovascular: denies: chest pain, palpitations Endocrine: no symptoms reported Gastrointestinal: denies: abdominal pain, nausea, diarrhea Genitourinary: denies: urgency, dysuria, discharge Musculoskeletal: denies: back pain, joint swelling, arthralgia Skin: denies: rash, lesions Neurological: denies: headache, weakness, paresthesias Psychiatric: denies: anxiety, depression Hematological/Lymphatic: denies: easy bleeding, easy bruising ED Past Medical Hx - Past Medical History Hx Hypertension: No Hx Diabetes: No Hx Deep Vein Thrombosis: No Hx Renal Disease: No Hx Sickle Cell Disease: No Hx Seizures: No Hx Asthma: Yes (used albuterol 15 years ago) Hx HIV: No - Social History Smoking Status: Unknown if ever smoked - Medications Home Medications: Home Medications Medication Instructions Recorded Confirmed Last Taken Type Lidocain2.5%/Prilocai2.5% [Emla] 5 gm TP PRN #1 tube 08/15/19 Unknown Rx Amoxicillin [Trimox CAP] 500 mg PO Q8H #30 capsule 06/24/21 Unknown Rx Ibuprofen [Motrin 800 MG tab] 800 mg PO TID PRN #30 tablet 06/24/21 Unknown Rx ED Physical Exam - General Limitations: No Limitations General appearance: alert, in no apparent distress - Head Head exam: Present: atraumatic, normocephalic - Eye Eye exam: Present: normal appearance - ENT ENT exam: Present: mucous membranes moist - Neck Neck exam: Present: normal inspection - Respiratory Respiratory exam: Present: normal lung sounds bilaterally. Absent: respiratory distress - Cardiovascular Cardiovascular Exam: Present: regular rate, normal rhythm. Absent: systolic murmur, diastolic murmur, rubs, gallop - GI/Abdominal GI/Abdominal exam: Present: soft, normal bowel sounds - Extremities Exam Extremities exam: Present: normal inspection - Back Exam Back exam: Present: normal inspection - Neurological Exam Neurological exam: Present: alert, oriented X3 - Psychiatric Psychiatric exam: Present: normal affect, normal mood - Skin Skin exam: Present: warm, dry, intact, normal color. Absent: rash ED Course Vital Signs 03/28/22 03/28/22 15:31 15:35 Temperature 98.4 F Pulse Rate 112 H 74 Respiratory 16 18 Rate Blood Pressure 131/80 118/64 [Left] O2 Sat by Pulse 100 100 Oximetry ED Medical Decision Making - Lab Data Result diagrams: 03/28/22 15:50 03/28/22 15:50 Critical care attestation.: If time is entered above; I have spent that time in minutes in the direct care of this critically ill patient, excluding procedure time. ED Disposition Clinical Impression: Tetrahydrocannabinol (THC) use disorder, mild, abuse Disposition: 01 HOME / SELF CARE / HOMELESS Is pt being admited?: No Does the pt Need Aspirin: No Condition: Stable
[2022-03-28 20:18] VITALS: BP 121/64
== END 2022-03-28 20:10 | disposition home or self-care (01) ==
LOC: ED 15:25
DX: F12.90 Cannabis use, unspecified, uncomplicated (principal); J45.909 Unspecified asthma, uncomplicated; Z91.09 Other allergy status, other than to drugs and biological substances; Z79.899 Other long term (current) drug therapy
CPT/HCPCS: 36415; 80053; 80307; 81001; 81025; 82150; 83690; 84484; 85007; 85025; 96361; 96374; 99284; J2405; J7030